=== PATIENT | female | born 1990 | race African-American/Black ===

== ENCOUNTER 2016-09-09 10:15 | Emergency (ER) | payer OTHER ==
[~2016-09-09] VITALS: Ht 165.1 cm; Wt 74.3 kg
[~2016-09-09 10:15] MED LIST: CHROMAGEN,1 CAPSULE PO; ENDOCET 5-3251 EACH PO; EXPECTA PRENAT1 EACH PO; Folvite PO; IBUPROFEN200 M1 PO; IBUPROFEN800 MG PO; MOTRIN800 MG PO; NAPROXEN500 MG PO; NORMODYNE,TRAN200 MG PO
[2016-09-09 11:19] LABS: HEMATOCRIT 33.8 % (36.0-46.0); MCH 29.3 PG (29.0-34.0); MCHC 32.2 G/DL (30.0-36.0); MCV 90.9 FL (83-99); MEAN PLAT.VOLUME 11.4 uM^3 (9.5-12.4); PLATELET COUNT 222 K/uL (156-360); RBC DIS.WIDTH-CV 13.8 % (11.8-14.6); RBC DIS.WIDTH-SD 46.3 % (39-53); RED BLOOD COUNT 3.72 M/uL (3.80-5.20); WHITE BLOOD COUNT 4.4 K/uL (4.1-10.2)
[2016-09-09 13:21] LABS: ADD MIUA? YES; BILIRUBIN NEGATIVE; BLOOD LARGE; COLOR YELLOW ((YELLOW)); GLUCOSE (STRIP) NEGATIVE; KETONES NEGATIVE; LEUKOCYTES NEGATIVE; NITRITE NEGATIVE; PROTEIN (STRIP) 30; SPECIFIC GRAVITY 1.023 (1.000-1.030); UROBILINOGEN 0.2 MG/DL (0.2-1.0)
[2016-09-09 13:29] LABS: BACTERIA RARE /HPF; EPITHELIAL CELLS RARE /HPF; MUCUS 3+ /LPF; RED BLOOD CELLS 15-20 /HPF (0-5); UCUL ADDED? NO; WHITE BLOOD CELLS 0-5 /HPF (0-5)
[2016-09-09 14:59] VITALS: BP 138/82
== END 2016-09-09 15:03 | disposition home or self-care (01) ==
LOC: EME 10:15
DX: O03.9 Complete or unspecified spontaneous abortion without complication (principal)
CPT/HCPCS: 76801; 81003; 84702; 85027; 99281; 99284

== ENCOUNTER 2017-05-22 02:04 | Outpatient (CLI) | payer OTHER ==
[2017-05-22] VITALS (13 sets, daily range): BP systolic 116–157; BP diastolic 70–106
[~2017-05-22] VITALS: Ht 165.1 cm; Wt 90.7 kg
[2017-05-22 03:24] LABS: APPEARANCE SL.HAZY ((CLEAR)); BILIRUBIN NEGATIVE; BLOOD NEGATIVE; COLOR YELLOW ((YELLOW)); GLUCOSE (STRIP) NEGATIVE; KETONES NEGATIVE; LEUKOCYTES NEGATIVE; NITRITE NEGATIVE; PROTEIN (STRIP) 30; SPECIFIC GRAVITY 1.018 (1.000-1.030)
[2017-05-22 03:29] LABS: BACTERIA NONE SEEN /HPF; EPITHELIAL CELLS 1+ /HPF; HYALINE CASTS 0-5 /LPF; MUCUS 2+ /LPF; RED BLOOD CELLS 0-5 /HPF (0-5); WHITE BLOOD CELLS 0-5 /HPF (0-5)
[2017-05-22 03:37] LABS: AMPHETAMINE NEGATIVE (500 ng/mL); BARBITURATES NEGATIVE (200 ng/mL); BENZODIAZEPINES NEGATIVE (150 ng/mL); BUPRENORPHINE NEGATIVE (10 ng/mL); COCAINE NEGATIVE (150 ng/mL); METHADONE NEGATIVE (200 ng/mL); METHAMPHETAMINE NEGATIVE (500 ng/mL); OPIATES (MORPHINE) NEGATIVE (100 ng/mL); OXYCODONE NEGATIVE (100 ng/mL); PHENCYCLIDINE NEGATIVE (25 ng/mL); PROPOXYPHENE NEGATIVE (300 ng/mL); THC CANNABINOIDS NEGATIVE (50 ng/mL); TRICYCLIC ANTIDEPRESSANTS NEGATIVE (300 ng/mL)
[2017-05-22 04:04] LABS: HEMATOCRIT 27.5 % (36.0-46.0); HEMOGLOBIN 9.1 G/DL (11.9-15.5); MCH 28.7 PG (29.0-34.0); MCHC 33.1 G/DL (30.0-36.0); MCV 86.8 FL (83-99); PLATELET COUNT 153 K/uL (156-360); RBC DIS.WIDTH-CV 13.8 % (11.8-14.6); RBC DIS.WIDTH-SD 42.7 % (39-53); RED BLOOD COUNT 3.17 M/uL (3.80-5.20); WHITE BLOOD COUNT 7.9 K/uL (4.1-10.2)
[2017-05-22 04:20] LABS: ALBUMIN 3.4 g/dL (3.2-4.8)
[2017-05-22 04:21] LABS: CHLORIDE 108 mEq/L (99-109); POTASSIUM 3.5 mEq/L (3.7-5.4); SODIUM 138 mEq/L (136-147)
[2017-05-22 04:23] LABS: GLUCOSE 81 mg/dL (70-99); TOTAL PROTEIN 6.6 g/dL (6.4-8.3)
[2017-05-22 04:25] LABS: TOTAL BILIRUBIN 0.3 mg/dL (0.0-1.0)
[2017-05-22 04:26] LABS: ALKALINE PHOSPHATASE 142 IU/L (3-129)
[2017-05-22 04:27] LABS: CREATININE 0.6 mg/dL (0.6-1.3); GFR ESTIMATE (CALCULATED) > 59 mL/min/
[2017-05-22 04:28] LABS: AST (GOT) 20 IU/L (2-34); UREA NITROGEN (BUN) 7 mg/dL (9-23)
[2017-05-22 04:29] LABS: ALT (GPT) 13 IU/L (3-49)
[2017-05-22 04:30] LABS: URIC ACID 4.4 mg/dL (3.1-9.2)
[2017-05-22 04:47] LABS: LACTATE DEHYDROGENASE 170 IU/L (20-246)
[2017-05-22 09:40] LABS: Estimated Average Glucose 120 mg/dL (70-123); HEMOGLOBIN A1c (GLYCOHEMOGLOB) 5.8 % HGB (Below 5.7)
== END 2017-05-22 08:40 | disposition home or self-care (01) ==
LOC: LDRP-OP 02:04 → 2WEST 02:05 → LDRP-OP 07-17 13:21
PROVIDERS: Advanced Practice Midwife
DX: O47.03 False labor before 37 completed weeks of gestation, third trimester (principal); Z3A.36 36 weeks gestation of pregnancy; O09.33 Supervision of pregnancy with insufficient antenatal care, third trimester; R03.0 Elevated blood-pressure reading, without diagnosis of hypertension
CPT/HCPCS: 59025; 80053; 81003; 82570; 83036; 83615; 84156; 84550; 85027; G0378; J7120

== ENCOUNTER 2017-05-22 17:26 | Inpatient (IN) | payer OTHER ==
[~2017-05-22] VITALS: Ht 165.1 cm; Wt 90.7 kg
[2017-05-22] VITALS (11 sets, daily range): BP systolic 127–157; BP diastolic 81–97
[2017-05-22 21:02] LABS: BASOPHIL (%) 0.2 % (0-1); EOSINOPHIL (%) 0.8 % (0-5); EOSINOPHIL COUNT 0.1 K/uL (0-0.3); HEMATOCRIT 27.7 % (36.0-46.0); HEMOGLOBIN 9.2 G/DL (11.9-15.5); IMMATURE GRANULOCYTE (%) 0.2 % (0.0-0.7); LYMPHOCYTE COUNT 2.3 K/uL (1.0-2.8); MCH 29.2 PG (29.0-34.0); MCHC 33.2 G/DL (30.0-36.0); MCV 87.9 FL (83-99); MONOCYTE (%) 9.4 % (3-12); MONOCYTE COUNT 0.8 K/uL (0-0.8); NEUTROPHIL (%) 61.4 % (45-76); NEUTROPHIL COUNT 5.1 K/uL (1.8-6.4); PLATELET COUNT 155 K/uL (156-360); RBC DIS.WIDTH-SD 44.2 % (39-53); RED BLOOD COUNT 3.15 M/uL (3.80-5.20); WHITE BLOOD COUNT 8.3 K/uL (4.1-10.2)
[2017-05-22 21:19] LABS: ALBUMIN 3.7 G/DL (3.2-4.8); ALKALINE PHOSPHATASE 134 IU/L (3-129); ALT (GPT) 11 IU/L (3-49); AST (GOT) 17 IU/L (2-34); CHLORIDE 108 MEQ/L (99-109); CREATININE 0.5 MG/DL (0.6-1.3); GFR ESTIMATE (CALCULATED) > 59 mL/min/; GLUCOSE 99 mg/dL (70-99); LACTATE DEHYDROGENASE 167 IU/L (20-246); POTASSIUM 3.4 MEQ/L (3.7-5.4); SODIUM 138 MEQ/L (136-147); TOTAL BILIRUBIN 0.3 MG/DL (0.0-1.0); TOTAL PROTEIN 6.8 G/DL (6.4-8.3); UREA NITROGEN (BUN) 7 mg/dL (9-23); URIC ACID 4.7 mg/dL (3.1-9.2)
[2017-05-23] VITALS (30 sets, daily range): BP systolic 122–155; BP diastolic 62–97
[2017-05-24] VITALS (35 sets, daily range): BP systolic 124–174; BP diastolic 73–101
[2017-05-25] VITALS (11 sets, daily range): BP systolic 128–152; BP diastolic 79–104
[2017-05-25 07:07] LABS: BASOPHIL (%) 0.1 % (0-1); EOSINOPHIL (%) 0 % (0-5); HEMATOCRIT 24.7 % (36.0-46.0); HEMOGLOBIN 8.3 G/DL (11.9-15.5); IMMATURE GRANULOCYTE (%) 1.4 % (0.0-0.7); LYMPHOCYTE (%) 14.2 % (15-42); LYMPHOCYTE COUNT 1.6 K/uL (1.0-2.8); MCH 29.4 PG (29.0-34.0); MCHC 33.6 G/DL (30.0-36.0); MCV 87.6 FL (83-99); MONOCYTE (%) 7.4 % (3-12); MONOCYTE COUNT 0.8 K/uL (0-0.8); NEUTROPHIL (%) 76.9 % (45-76); NEUTROPHIL COUNT 8.5 K/uL (1.8-6.4); NRBC (%) 0.7 /100 WBC (0-0); RBC DIS.WIDTH-CV 14.3 % (11.8-14.6); RBC DIS.WIDTH-SD 44.9 % (39-53); RED BLOOD COUNT 2.82 M/uL (3.80-5.20); WHITE BLOOD COUNT 11.6 K/uL (4.1-10.2)
[2017-05-25 07:16] LABS: ALBUMIN 3.1 G/DL (3.2-4.8); ALKALINE PHOSPHATASE 103 IU/L (3-129); ALT (GPT) 10 IU/L (3-49); AST (GOT) 14 IU/L (2-34); CHLORIDE 111 MEQ/L (99-109); CREATININE 0.5 MG/DL (0.6-1.3); GFR ESTIMATE (CALCULATED) > 59 mL/min/; GLUCOSE 95 mg/dL (70-99); POTASSIUM 3.9 MEQ/L (3.7-5.4); SODIUM 140 MEQ/L (136-147); TOTAL BILIRUBIN 0.2 MG/DL (0.0-1.0); TOTAL PROTEIN 5.7 G/DL (6.4-8.3); UREA NITROGEN (BUN) 5 mg/dL (9-23)
[2017-05-25 07:55] LABS: HEMATOLOGY COMMENT 1 SMEAR COMPATIBLE; PLAT.SUFFICIENCY ADEQUATE; PLATELET COUNT 158 K/uL (156-360)
[2017-05-26 02:14] VITALS: BP 124/72
[2017-05-26 08:00] VITALS: BP 141/86
[2017-05-26] MEDS ORDERED: NIFEDIPINE ER30 MG PO (08:42)
[2017-05-26] MEDS ORDERED: IBUPROFEN800 MG PO (08:42)
[2017-05-26 11:00] VITALS: BP 147/92
== END 2017-05-26 14:10 | disposition home or self-care (01) | DRG 775 ==
LOC: LDRP-OP 17:26 → 2WEST 17:28 → LDRP-OP 07-17 09:11
PROVIDERS: Advanced Practice Midwife; Obstetrics & Gynecology
PROC: 3E0P7VZ Introduction of Hormone into Female Reproductive, Via Natural or Artificial Opening (ICD-10-PCS; principal; 2017-05-24)
PROC: 10E0XZZ Delivery of Products of Conception, External Approach (ICD-10-PCS; principal; 2017-05-24)
PROC: 10907ZC Drainage of Amniotic Fluid, Therapeutic from Products of Conception, Via Natural or Artificial Opening (ICD-10-PCS; principal; 2017-05-24)
PROC: 3E033VJ Introduction of Other Hormone into Peripheral Vein, Percutaneous Approach (ICD-10-PCS; principal; 2017-05-24)
DX: O60.14X0 Preterm labor third trimester with preterm delivery third trimester, not applicable or unspecified (principal); Z37.0 Single live birth; O14.14 Severe pre-eclampsia complicating childbirth; D62 Acute posthemorrhagic anemia; O99.02 Anemia complicating childbirth; O99.214 Obesity complicating childbirth; Z68.30 Body mass index [BMI] 30.0-30.9, adult; E66.9 Obesity, unspecified; Z3A.36 36 weeks gestation of pregnancy; D50.9 Iron deficiency anemia, unspecified
CPT/HCPCS: 59025; 80053; 81003; 82570; 83036; 83615; 84156; 84550; 85025; 85027; 85384; G0378; J0595; J0702; J2540; J3475; J7120